=== PATIENT | male | born 1950 | race Caucasian/White ===

== ENCOUNTER 2017-05-25 12:00 | Emergency (ER) | payer BC ==
[~2017-05-25] VITALS: Ht 175.3 cm; Wt 70.3 kg
[2017-05-25 12:53] LABS: CALCIUM 9.3 mg/dL (8.5-10.1); CARBON DIOXIDE 21.5 mmol/L (21-32); CREATININE SERUM 1.5 mg/dL (0.7-1.3); POTASSIUM SERUM 4.4 mmol/L (3.5-5.1)
[2017-05-25 12:58] LABS: BILIRUBIN TOTAL 1.2 mg/dL (0.20-1.00); TOTAL PROTEIN, SERUM 6.8 g/dL (6.4-8.2)
[2017-05-25 13:06] LABS: PLATELET COUNT 143 x10^3mcL (130-400); RED CELL DISTRIBUTION WIDTH 12.6 % (11.5-14.5)
[2017-05-25 13:11] LABS: BASOPHIL % 0 % (0-2)
[2017-05-25 14:06] VITALS: BP 131/88
== END 2017-05-25 14:46 | disposition home or self-care (01) ==
LOC: ED 12:00
PROVIDERS: Emergency Medicine
DX: E86.0 Dehydration (principal); I10 Essential (primary) hypertension